=== PATIENT | female | born 1965 | race Caucasian/White ===

== ENCOUNTER → 2017-07-17 | Outpatient (CLI) | payer OTHER ==
--- NOTE | 2017-07-19 08:01 | MAMMOGRAPHY REPORT ---
BILATERAL DIGITAL SCREENING MAMMOGRAM TOMOSYNTHESIS WITH CAD: 07/17/2017 CLINICAL HISTORY: Routine screening. Patient has no complaints. TECHNIQUE: Breast tomosynthesis in addition to standard 2D mammography was performed. Current study was also evaluated with a Computer Aided Detection (CAD) system. COMPARISON: Comparison is made to exams dated: 08/18/2016 mammogram, 08/29/2015 mammogram, and 5 mammogram. BREAST COMPOSITION: There are scattered areas of fibroglandular density in both breasts. FINDINGS: There are stable benign intramammary lymph nodes in the right breast. No suspicious mass, architectural distortion or cluster of microcalcifications is seen. IMPRESSION: ACR BI-RADS CATEGORY 1: NEGATIVE There is no mammographic evidence of malignancy. A 1 year screening mammogram is recommended. The pa tient will receive written notification of the results. Approximately 10% of breast cancers are not detected with mammography. A negative mammographic report should not delay biopsy if a clinically suggestive mass is present. Joanie Martínez M.D. ay/:07/17/2017 16:30:24 Moisture Conditioner Operator: Norma BROWN(R)([place]), [facility] letter sent: Normal 1/2 BI-RADS Code: ACR BI-RADS Category 1: Negative
== END | disposition home or self-care (01) ==
LOC: C.MAMM 13:50
PROVIDERS: ATTEND Nurse Practitioner Family
DX: Z12.31 Encounter for screening mammogram for malignant neoplasm of breast (principal)

== ENCOUNTER 2022-04-30 23:07 | Observation (INO) ==
[2022-04-30] MEDS ORDERED: SODIUM CHLORIDE 0.9% 1000ML 500 ML IV ONE (23:32)
--- NOTE | 2022-04-30 23:36 | Emergency Department Note ---
Impression & Plan Failure to thrive, Constipation, Acute dehydration ED Provider Note Name: AILEEN CARTER Age: 56 Sex: F Arrives Via: Ambulance Informant: ED Provider: Chirs Harley MD Chief Complaint: Constipation Impression: As per impressions above Medical Decision Makin-year-old female with hemorrhagic stroke 2 months ago requiring craniotomy and has been in a rehab facility up until last few days. She is recently gotten home with her . Arrives for evaluation of congestion and being uncomfortable. notes she has not pooped in several days. She is significantly constipated. Her chest x-ray is unremarkable. After long discussion with it seems he is having a lot of trouble caring for her given she is essentially 100% max assist requirement. After extensive discussions plan will be to bring her in for management of failure to thrive and constipation get her rehydrated and determine whether nursing facility care will be needed. I do not feel she is septic at this time I think the tachycardia and elevated white count are likely secondary to dehydration. UA is not consistent with a significant infection. Chest x-ray does not show pneumonia. While she is significantly constipated on KUB I do not see any clear evidence of obstruction she does not have a paratonic abdomen. Prior Medical Record and Triage/Nursing Notes reviewed by Me Additional history obtained from chart and Differentials:Infection, dehydration, metabolic abnormality, hypo/hyperglycemia, electrolyte disturbance, anemia, hypoxia, cardiac sources, intracerebral event, toxicologic, neurologic, as well as other pathologies. Vital Signs: reviewed and remarkable for tacky Interventions: IV fluids Labs:Reviewed and remarkable for mildly elevated white blood cell count Imagin view chest x-ray no acute findings. KUB nonspecific bowel gas pattern with moderate constipation Consults:Dr Regulo MCGINNIS Hospitalist Plan: Disposition:Hospitalization. Condition: Good History of Present Illness:56-year-old female arrives for evaluation of difficulty breathing as well as constipation. Patient had a large hemorrhagic stroke back in February and has been in rehab following craniotomy since then. She was discharged from rehab 3 days ago. During her stay at rehab she did have COVID about a month ago. Today she has had increasing work of breathing and been more uncomfortable. notes that she has not a bowel movement other than small hard stool in the last few days. She seemed to be complaining of abdominal pain earlier as well. She was given some Moxi IR with improvement in the pain. No vomiting. No blue lips. On getting to the hospital her breathing seems to have improved. No falls, trauma, injury. Patient does not have any foul-smelling urine but has been increased urination the last few days. ROS: Patient is aphasic and unable to do review of systems Past Medical History:Intracranial hemorrhage hypertension Past Surgical History:Craniotomy Family History:Unable to obtain due to aphasia Social History:Currently cared for by her as patient is bedbound Home Medications:See Below Allergies:Penicillin, erythromycin Vitals:Blood Pressure: 115/69, Pulse 118, RR 19, T 37.3C, O2 94% on RA Physical Exam: GENERAL: Patient is chronically unwell appearing and in minimal distress. EYES: No scleral icterus, unremarkable pupils. ENT: Mucous membranes dry, no nasal congestion. NECK: No masses appreciated, nomeningismus, trachea is midline. RESPIRATORY: No dyspnea. Clear to auscultation and equal bilaterally. No wheeze, no rhonchi. CARDIOVASCULAR: Tachy.No murmurs, rubs, gallops appreciated. GASTROINTESTINAL: Abdomen soft, non-tender, no peritonitis.Bowel sounds positive.No masses appreciated. BACK: No midline tenderness, no CVA tenderness EXTREMITIES: Normal motion all extremities, no cyanosis, no edema. NEUROLOGIC: Looking around room, nodding to questions periodically, smiles periodically, flaccidity right arm/leg, moves left arm/leg SKIN: No rash, no jaundice, no diaphoresis. ED Course: Times/Reassessments: Patient's heart rate is slowly coming down. After discussi ons plan is to bring her in for further management and possibly placement depending on how things go. Chris Harley MD Past Med/Surg History Medical History (Updated 05/01/22 @ 07:04 by Chris Harley MD) Intraparenchymal hematoma of brain Surgical History (Updated 05/01/22 @ 02:18 by Adwoa Rajput DO) History of brain surgery Family History Other Migraine Social History Smoking Status: Never smoker Hx Alcohol Use: No Hx Substance Use: Yes Substance Use Type Other:: patient takes prescribed scheduled oxycodone Preferred Language: Bengali Communication Ability: Impaired Communication Ability Comment: patient can respond yes or no and answer appropriate at times Loose Hand Packer Required: No Beliefs That Will Affect Care: None Current Living Situation: Spouse Other Information That Helps Us Care for You: No Feels Safe at Home: Yes Safety Concerns: Feels Safe At This Time Assistive Devices: Wheelchair Assistive Devices Comment: helmet when OOB Allergies Allergies Allergy/AdvReac Type Severity Reaction Status Date / Time Penicillins Allergy Severe Hives Verified 02/21/22 19:23 erythromycin base AdvReac Severe Nausea Verified 02/21/22 19:23 Home Meds Home Medications Medication Instructions Recorded Confirmed acetaminophen 325 mg capsule 650 mg PO QID PRN Pain 02/21/22 05/01/22 (Tylenol) calcium citrate 315 mg-vitamin D3 1 tab PO DAILY 02/21/22 05/01/22 5 mcg (200 unit) tablet (Calcium Citrate + D) metoprolol tartrate 25 mg tablet 12.5 mg PO QPM 02/21/22 05/01/22 multivitamin 1 tab PO DAILY 02/21/22 05/01/22 naproxen sodium 220 mg capsule 220 mg PO Q8H PRN Pain 02/21/22 05/01/22 (Aleve) vitamin B complex 1 tab PO DAILY 02/21/22 05/01/22 albuterol sulfate 90 mcg/actuation 2 puff inhalation QID PRN 05/01/22 05/01/22 aerosol inhaler Shortness Of Breath Or Wheezing amitriptyline 50 mg tablet 50 mg PO DAILY 05/01/22 05/01/22 duloxetine 30 mg capsule,delayed 30 mg PO DAILY 05/01/22 05/01/22 release gabapentin 100 mg capsule 100 mg PO TID 05/01/22 05/01/22 magnesium 250 mg tablet 500 mg PO DAILY 05/01/22 05/01/22 ondansetron 4 mg disintegrating 4 mg PO UD PRN Nausea 05/01/22 05/01/22 tablet oxycodone 5 mg tablet 5 mg PO UD PRN Pain 05/01/22 05/01/22 pantoprazole 40 mg tablet,delayed 40 mg PO BID 05/01/22 05/01/22 release Results & Data (ED) Vital Signs Vital Signs - 24 hr 04/30/22 23:18 04/30/22 23:14 04/30/22 23:20 Temperature 37.3 C Temperature Source Oral Pulse Rate 118 H 117 H 111 H Pulse Rate from SpO2 Sensor 117 H 113 H Respiratory Rate 19 13 19 Blood Pressure 115/69 Blood Pressure Mean 84 Pulse Oximetry 94 94 94 Oxygen Delivery Method Room Air Sepsis Recent Fever Within 48 Hours No Sepsis New/Unexplained Change in Mental Status No Sepsis Action Taken by Nursing No Action Required 04/30/22 23:30 04/30/22 23:40 04/30/22 23:50 Temperature Temperature Source Pulse Rate 108 H 119 H 138 H Pulse Rate from SpO2 Sensor 108 H 119 H 130 H Respiratory Rate 11 L 16 16 Blood Pressure Blood Pressure Mean Pulse Oximetry 94 95 83 L Oxygen Delivery Method Sepsis Recent Fever Within 48 Hours Sepsis New/Unexplained Change in Mental Status Sepsis Action Taken by Nursing 05/01/22 00:00 05/01/22 00:10 05/01/22 00:20 Temperature Temperature Source Pulse Rate 105 H 120 H 106 H Pulse Rate from SpO2 Sensor 105 H 119 H 106 H Respiratory Rate 14 14 15 Blood Pressure Blood Pressure Mean Pulse Oximetry 93 95 93 Oxygen Delivery Method Sepsis Recent Fever Within 48 Hours Sepsis New/Unexplained Change in Mental Status Sepsis Action Taken by Nursing 05/01/22 00:30 05/01/22 00:40 05/01/22 01:00 Temperature Temperature Source Pulse Rate 104 H 111 H 114 H Pulse Rate from SpO2 Sensor 104 H 112 H 114 H Respiratory Rate 14 14 17 Blood Pressure 118/70 Blood Pressure Mean 86 Pulse Oximetry 93 93 94 Oxygen Delivery Method Room Air Sepsis Recent Fever Within 48 Hours Sepsis New/Unexplained Change in Mental Status Sepsis Action Taken by Nursing 05/01/22 01:30 05/01/22 01:33 05/01/22 02:00 Temperature Temperature Source Pulse Rate 102 H 101 H 101 H Pulse Rate from SpO2 Sensor 103 H Respiratory Rate 14 13 15 Blood Pressure 132/82 132/82 124/73 Blood Pressure Mean 98 98 90 Pulse Oximetry 96 96 94 Oxygen Delivery Method Room Air Room Air Room Air Sepsis Recent Fever Within 48 Hours Sepsis New/Unexplained Change in Mental Status Sepsis Action Taken by Nursing Laboratory Data Result diagrams: 04/30/22 23:40 05/01/22 01:03 Lab Results 04/30/22 04/30/22 04/30/22 Range/Units 23:40 23:40 23:40 WBC 13.42 H (4.8-10.8) K/ul RBC 4.33 (3.93-5.22) M/uL Hgb 12.8 (12.0-16.0) g/dl Hct 40.0 (34.1-44.9) % MCV 92.4 (80.0-100.0) fL MCH 29.6 (25.0-34.0) pg MCHC 32.0 (32.0-36.0) g/dL RDW Std Deviation 44.5 (36.4-46.3) fL RDW Coeff of Balaji 13.1 (11.5-14.5) % Plt Count 361 (130-400) K/uL MPV 9.4 (9.4-12.3) fL Immature Gran % (Auto) 0.4 % Neut % (Auto) 79.2 % Lymph % (Auto) 11.3 % Davis % (Auto) 6.2 % Eos % (Auto) 2.3 % Baso % (Auto) 0.6 % Neut # (Auto) 10.64 H (1.4-6.5) K/uL Lymph # (Auto) 1.51 (1.2-3.4) K/uL Davis # (Auto) 0.83 H (0.24-0.82) K/uL Eos # (Auto) 0.31 (0-0.50) K/uL Baso # (Auto) 0.08 (0-0.2) K/uL Immature Gran # (Auto) 0.05 H (0.00-0.02) K/uL Sodium 137 (136-145) mmol/L Potassium TNP Chloride 103 (98-107) mmol/L Carbon Dioxide 29 (21-32) mmol/L Anion Gap 5 (3-11) BUN 17 (6-23) mg/dl Creatinine 0.61 (0.6-1.2) mg/dl Est Cr Clr Drug Dosing Not Reportable Est GFR ( Amer) 118.3 ml/min Est GFR (Non-Af Amer) 102.1 ml/min BUN/Creatinine Ratio 27.9 H (10-20) Glucose 121 H (70-99(Fasting)) mg/dl Calcium 8.7 (8.5-10.1) mg/dl Magnesium 2.2 (1.7-2.4) mg/dl Total Bilirubin 0.3 (0.2-1.0) mg/dl AST TNP ALT 44 (7-52) U/L Alkaline Phosphatase 138 H (34-104) U/L Total Protein 6.8 (6.0-8.3) gm/dl Albumin 3.4 (3.4-5.0) gm/dl Globulin 3.4 (2.5-4.0) gm/dl Albumin/Globulin Ratio 1.0 (0.9-2) Procalcitonin 0.05 (0-0.5) ng/ml Urine Color Urine Appearance (Clear) Urine pH (4.5-7.5) Ur Specific [place] (1.000-1.030) Urine Protein (Negative) Urine Glucose (UA) (Negative) Urine Ketones (Negative) Urine Blood (Negative) Urine Nitrite (Negative) Urine Bilirubin (Negative) Urine Urobilinogen (Negative) Ur Leukocyte Esterase (Negative) Urine WBC (Auto) (0-5) /hpf Urine RBC (Auto) (0-4) /hpf U Hyaline Cast (Auto) (0-5) /lpf U Epithel Cells (Auto) (0-5) /lpf Urine Bacteria (Auto) (Negative) SARS-CoV-2 (PCR) (Negative) Influenza Type A (PCR) (Neg) Influenza Type B (PCR) (Neg) RSV (RT-PCR) (Neg) 04/30/22 05/01/22 05/01/22 Range/Units 23:42 00:50 01:03 WBC (4.8-10.8) K/ul RBC (3.93-5.22) M/uL Hgb (12.0-16.0) g/dl Hct (34.1-44.9) % MCV (80.0-100.0) fL MCH (25.0-34.0) pg MCHC (32.0-36.0) g/dL RDW Std Deviation (36.4-46.3) fL RDW Coeff of Balaji (11.5-14.5) % Plt Count (130-400) K/uL MPV (9.4-12.3) fL Immature Gran % (Auto) % Neut % (Auto) % Lymph % (Auto) % Davis % (Auto) % Eos % (Auto) % Baso % (Auto) % Neut # (Auto) (1.4-6.5) K/uL Lymph # (Auto) (1.2-3.4) K/uL Davis # (Auto) (0.24-0.82) K/uL Eos # (Auto) (0-0.50) K/uL Baso # (Auto) (0-0.2) K/uL Immature Gran # (Auto) (0.00-0.02) K/uL Sodium (136-145) mmol/L Potassium 4.3 Chloride (98-107) mmol/L Carbon Dioxide (21-32) mmol/L Anion Gap (3-11) BUN (6-23) mg/dl Creatinine (0.6-1.2) mg/dl Est Cr Clr Drug Dosing Est GFR ( Amer) ml/min Est GFR (Non-Af Amer) ml/min BUN/Creatinine Ratio (10-20) Glucose (70-99(Fasting)) mg/dl Calcium (8.5-10.1) mg/dl Magnesium (1.7-2.4) mg/dl Total Bilirubin (0.2-1.0) mg/dl AST 25 ALT (7-52) U/L Alkaline Phosphatase (34-104) U/L Total Protein (6.0-8.3) gm/dl Albumin (3.4-5.0) gm/dl Globulin (2.5-4.0) gm/dl Albumin/Globulin Ratio (0.9-2) Procalcitonin (0-0.5) ng/ml Urine Color Yellow Urine Appearance Clear (Clear) Urine pH 7.5 (4.5-7.5) Ur Specific [place] 1.011 (1.000-1.030) Urine Protein Negative (Negative) Urine Glucose (UA) Negative (Negative) Urine Ketones Negative (Negative) Urine Blood Negative (Negative) Urine Nitrite Negative (Negative) Urine Bilirubin Negative (Negative) Urine Urobilinogen Negative (Negative) Ur Leukocyte Esterase 1+ H (Negative) Urine WBC (Auto) 10-30 H (0-5) /hpf Urine RBC (Auto) 0-4 (0-4) /hpf U Hyaline Cast (Auto) 0 (0-5) /lpf U Epithel Cells (Auto) 5-10 H (0-5) /lpf Urine Bacteria (Auto) Negative (Negative) SARS-CoV-2 (PCR) NEGATIVE (Negative) Influenza Type A (PCR) Negative (Neg) Influenza Type B (PCR) Negative (Neg) RSV (RT-PCR) Negative (Neg) Administered Medications Lactated Ringer's (Lr) 1,000 mls @ 80 mls/hr IV .[id number] BRYCE Stop: 05/01/22 16:36 Last Admin: 05/01/22 05:50 Dose: 80 mls/hr Documented By: JONATHON Acetaminophen (Ofirmev) 1,000 mg in 100 mls @ 400 mls/hr IV Q8H PRN PRN Reason: pain Stop: 05/04/22 06:08 Last Admin: 05/01/22 06:32 Dose: 400 mls/hr Documented By: JONATHON Sterile Water (Tube Feeding Water Flush) 100 ml GT Q6H BRYCE Stop: 05/31/22 05:59 Last Admin: 05/01/22 05:50 Dose: 100 ml Documented By: JONATHON Discontinued Medications Sodium Chloride (Nss 1000ml) 500 mls @ 999 mls/hr IV .Q31M ONE Stop: 05/01/22 00:02 Last Infusion: 05/01/22 01:39 Dose: 0 mls/hr Documented By: Admin: 05/01/22 01:08 Dose: 999 mls/hr Documented By: SUZETTE Discharge Plan Visit Data Chief Complaint: Abdominal Pain Stated Complaint: Shortness of Breath, Constipation ED Provider: Chris Harley Discharge Problem: Failure to thrive, Constipation, Acute dehydration Patient Disposition: Admitted As Inpatient Discharge Instructions Interventions: ED Discharge Assessment Last Done: 05/01/22 03:30 : Failure to thrive Qualifiers: Failure to thrive age range: in adult Qualified Code(s): R62.7 - Adult failure to thrive Constipation Qualifiers: Constipation type: drug induced constipation Qualified Code(s): K59.03 - Drug induced constipation
[2022-04-30 23:53] LABS: Basophils # (auto) 0.08 K/uL (0-0.2); Basophils % (auto) 0.6 %; Eosinophils # (auto) 0.31 K/uL (0-0.50); Eosinophils % (auto) 2.3 %; Hemoglobin 12.8 g/dl (12.0-16.0); Immature Granulocytes # (auto) 0.05 K/uL (0.00-0.02); Immature Granulocytes % (auto) 0.4 %; Lymphocytes # (auto) 1.51 K/uL (1.2-3.4); Lymphocytes % (auto) 11.3 %; Mean Corpuscular Hemoglobin 29.6 pg (25.0-34.0); Mean Corpuscular Volume 92.4 fL (80.0-100.0); Mean Platelet Volume 9.4 fL (9.4-12.3); Monocytes # (auto) 0.83 K/uL (0.24-0.82); Monocytes % (auto) 6.2 %; Neutrophils # (auto) 10.64 K/uL (1.4-6.5); Neutrophils % (auto) 79.2 %; Platelet Count 361 K/uL (130-400); RDW Coefficient of Variation 13.1 % (11.5-14.5); RDW Standard Deviation 44.5 fL (36.4-46.3); Red Blood Count 4.33 M/uL (3.93-5.22); White Blood Count 13.42 K/ul (4.8-10.8)
[2022-05-01 00:24] LABS: Alanine Aminotransferase 44 U/L (7-52); Albumin Level 3.4 gm/dl (3.4-5.0); Alkaline Phosphatase 138 U/L (34-104); Anion Gap 5 (3-11); BUN Creatinine Ratio 27.9 (10-20); Bilirubin,Total 0.3 mg/dl (0.2-1.0); Blood Urea Nitrogen 17 mg/dl (6-23); Calcium 8.7 mg/dl (8.5-10.1); Carbon Dioxide 29 mmol/L (21-32); Chloride 103 mmol/L (98-107); Est GFR (African American) 118.3 ml/min; Est GFR (Non-African American) 102.1 ml/min; Globulin 3.4 gm/dl (2.5-4.0); Glucose 121 mg/dl (70-99(Fasting)); Magnesium 2.2 mg/dl (1.7-2.4); Sodium 137 mmol/L (136-145); Total Protein 6.8 gm/dl (6.0-8.3)
[2022-05-01 00:49] LABS: Influenza A virus by PCR Negative (Neg); Influenza B virus by PCR Negative (Neg); RSV by PCR Negative (Neg); SARS CoV2 RNA(COVID-19) Ceph NEGATIVE (Negative)
[2022-05-01 01:30] LABS: Appearance Urine Clear (Clear); Bacteria Urine Automated Negative (Negative); Bilirubin Urine Negative (Negative); Blood Urine Negative (Negative); Cast Urine Automated 0 /lpf (0-5); Color Urine Yellow; Glucose Urine UA Negative (Negative); Ketones Urine Negative (Negative); Leukocyte Esterase Urine 1+ (Negative); Nitrite Urine Negative (Negative); Protein Urine Negative (Negative); RBC Urine Automated 0-4 /hpf (0-4); Specific Gravity Urine 1.011 (1.000-1.030); Urobilinogen Urine Negative (Negative); pH Urine 7.5 (4.5-7.5)
[2022-05-01 01:38] LABS: Potassium 4.3 mmol/L (3.5-5.1)
--- NOTE | 2022-05-01 02:26 | History & Physical Report ---
Date of Service May 01, 2022 Assessment & Plan (1) Constipation: Plan: Patient with significant constipation -Miralax per PEG tube -Dulcolax CO -IVF - LR at 80mL/hr x 2L (2) Intraparenchymal hematoma of brain: Plan: Patient with left thalamic intraparenchymal hemorrhage on 04/06/22 s/p left decompressive hemicraniectomy and evacuation of hematoma. 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 -Turn and position q 2 hours -Monitor for skin breakdown -Aspiration precautions states that pathology report from her surgery revealed Glioblastoma as well. They are going to see Neuro-Oncology at [facility] and are opting to take a palliative course of action. -PT/OT evaluation re: possible fpc placement F/E/N - LR at 80mL/hr x 2L, electrolytes WNL, soft diet as tolerated with aspiration precautions Ppx - low risk for DVT Code - DNR/DNI Dispo - Admit to medical History of Present Illness Chief Complaint: constipation Primary Care Provider: Tejas Roman MD Netta Sibley is an unfortunate 56yo female with history of childhood ALL s/p chemotherapy and WBRT. She had a large left thalamic spontaneous intraparenchymal hematoma on 03/06/22 s/p left sided decompressive hemicraniectomy on 03/08/22, hematoma evacuation on 03/13/22. Patient had a tracheostomy and PEG tube placement. She was discharged to an LTAC on 03/22/22. Patient was then managed at [facility] and returned home 4 days ago. Her has been managing her care. They just started home health services today. notes severe constipation. Patient has only had 3 small BMs since returning home. Also some mention of upper airway noise, difficulty clearing secretions at times. No fever, chills, chest pain, cough or SOB. No nausea or vomiting. Patient with right sided flaccid paralysis and expressive aphasia. She is able to answer "yes" and "no" only at times. She is able to sit up in a wheelchair. She is able to feed herself a soft diet and also receives PEG tube feedings qHS (Jevity at 60mL/hr x 450mL nightly with free water flushes 100mL q 6 hours). She takes her medications with applesauce. She has a hospital bed and wheelchair at home. She wears a helmet when she is out of bed and a drop foot brace on her RLE. In the ER she is afebrile, HD stable, NAD. ER Course: NSS x 500mL Allergies Allergy/AdvReac Type Severity Reaction Status Date / Time Penicillins Allergy Severe Hives Verified 02/21/22 19:23 erythromycin base AdvReac Severe Nausea Verified 02/21/22 19:23 Home Medications Medication Instructions Recorded Confirmed Type acetaminophen 325 mg capsule 650 mg PO QID PRN Pain 02/21/22 03/07/22 History (Tylenol) calcium citrate 315 mg-vitamin D3 1 tab PO DAILY 02/21/22 03/07/22 History 5 mcg (200 unit) tablet (Calcium Citrate + D) magnesium 500 mg tablet 500 mg PO DAILY 02/21/22 03/07/22 History metoprolol tartrate 25 mg tablet 12.5 mg PO QPM 02/21/22 03/07/22 History multivitamin 1 tab PO DAILY 02/21/22 03/07/22 History naproxen sodium 220 mg capsule 220 mg PO Q8H PRN Pain 02/21/22 03/07/22 History (Aleve) vitamin B complex 1 tab PO DAILY 02/21/22 03/07/22 History Past Med/Surg History Medical History (Updated 05/01/22 @ 02:21 by Adwoa Rajput DO) Intraparenchymal hematoma of brain Surgical History (Updated 05/01/22 @ 02:18 by Adwoa Rajput DO) History of brain surgery Family History Other Migraine Social History Smoking Status: Unknown if ever smoked Preferred Language: Nigerien Feels Safe at Home: Yes Review of Systems Review of Systems: All systems reviewed & are unremarkable except as noted in HPI & below Physical Exam Physical Exam: General: right sided flaccid paralysis, expressive aphasia, s/p left sided hemicraniectomy Skin: warm, dry, intact, no rashes or lesions HEENT: NC/AT, PERRL, EOMI, anicteric sclera, conjunctiva without injection, external ear normal to inspection and nontender, nares patent, moist mucus membranes, dentition intact, no oropharyngeal lesions, neck supple, trachea midline, no LAD, no thyromegaly, no JVD Heart: +S1/S2, regular, no m/r/g Lungs: equal air entry bilaterally, no rales/rhonchi/wheezes Abd: +BS, soft, NT/ND, no masses/organomegaly/ascites, PEG tube in place Ext: warm, 2+ pulses in UE/LE bilaterally, no clubbing/cyanosis or edema Neuro: right sided paralysis, expressive aphasia Results & Data Results & Data ([facility]) Vital Signs (Past 12 Hours) Vital Signs Temp Pulse Resp BP Pulse Ox O2 Del Method 05/01/22 01:30 102 H 14 132/82 96 Room Air 05/01/22 01:00 114 H 17 118/70 94 Room Air 05/01/22 00:40 111 H 14 93 05/01/22 00:30 104 H 14 93 05/01/22 00:20 106 H 15 93 05/01/22 00:10 120 H 14 95 05/01/22 00:00 105 H 14 93 04/30/22 23:50 138 H 16 83 L 04/30/22 23:40 119 H 16 95 04/30/22 23:30 108 H 11 L 94 04/30/22 23:20 111 H 19 94 04/30/22 23:14 117 H 13 94 04/30/22 23:18 37.3 C 118 H 19 115/69 94 Room Air Laboratory Results Laboratory Results WBC 13.42 K/ul (4.8-10.8) H 04/30/22 23:40 RBC 4.33 M/uL (3.93-5.22) 04/30/22 23:40 Hgb 12.8 g/dl (12.0-16.0) 04/30/22 23:40 Hct 40.0 % (34.1-44.9) 04/30/22 23:40 MCV 92.4 fL (80.0-100.0) 04/30/22 23:40 MCH 29.6 pg (25.0-34.0) 04/30/22 23:40 MCHC 32.0 g/dL (32.0-36.0) 04/30/22 23:40 RDW Std Deviation 44.5 fL (36.4-46.3) 04/30/22 23:40 RDW Coeff of Balaji 13.1 % (11.5-14.5) 04/30/22 23:40 Plt Count 361 K/uL (130-400) 04/30/22 23:40 MPV 9.4 fL (9.4-12.3) 04/30/22 23:40 Immature Gran % (Auto) 0.4 % 04/30/22 23:40 Neut % (Auto) 79.2 % 04/30/22 23:40 Lymph % (Auto) 11.3 % 04/30/22 23:40 [place] % (Auto) 6.2 % 04/30/22 23:40 Eos % (Auto) 2.3 % 04/30/22 23:40 Baso % (Auto) 0.6 % 04/30/22 23:40 Neut # (Auto) 10.64 K/uL (1.4-6.5) H 04/30/22 23:40 Lymph # (Auto) 1.51 K/uL (1.2-3.4) 04/30/22 23:40 [place] # (Auto) 0.83 K/uL (0.24-0.82) H 04/30/22 23:40 Eos # (Auto) 0.31 K/uL (0-0.50) 04/30/22 23:40 Baso # (Auto) 0.08 K/uL (0-0.2) 04/30/22 23:40 Immature Gran # (Auto) 0.05 K/uL (0.00-0.02) H 04/30/22 23:40 Sodium 137 mmol/L (136-145) 04/30/22 23:40 Potassium 4.3 mmol/L (3.5-5.1) 05/01/22 01:03 Chloride 103 mmol/L (98-107) 04/30/22 23:40 Carbon Dioxide 29 mmol/L (21-32) 04/30/22 23:40 Anion Gap 5 (3-11) 04/30/22 23:40 BUN 17 mg/dl (6-23) 04/30/22 23:40 Creatinine 0.61 mg/dl (0.6-1.2) 04/30/22 23:40 Est Cr Clr Drug Dosing Not Reportable 04/30/22 23:40 Est GFR ( Amer) 118.3 ml/min 04/30/22 23:40 Est GFR (Non-Af Amer) 102.1 ml/min 04/30/22 23:40 BUN/Creatinine Ratio 27.9 (10-20) H 04/30/22 23:40 Glucose 121 mg/dl (70-99(Fasting)) H 04/30/22 23:40 Calcium 8.7 mg/dl (8.5-10.1) 04/30/22 23:40 Magnesium 2.2 mg/dl (1.7-2.4) 04/30/22 23:40 Total Bilirubin 0.3 mg/dl (0.2-1.0) 04/30/22 23:40 AST 25 U/L (13-39) 05/01/22 01:03 ALT 44 U/L (7-52) 04/30/22 23:40 Alkaline Phosphatase 138 U/L (34-104) H 04/30/22 23:40 Total Protein 6.8 gm/dl (6.0-8.3) 04/30/22 23:40 Albumin 3.4 gm/dl (3.4-5.0) 04/30/22 23:40 Globulin 3.4 gm/dl (2.5-4.0) 04/30/22 23:40 Albumin/Globulin Ratio 1.0 (0.9-2) 04/30/22 23:40 Procalcitonin 0.05 ng/ml (0-0.5) 04/30/22 23:40 Urine Color Yellow 05/01/22 00:50 Urine Appearance Clear (Clear) 05/01/22 00:50 Urine pH 7.5 (4.5-7.5) 05/01/22 00:50 Ur Specific [place] 1.011 (1.000-1.030) 05/01/22 00:50 Urine Protein Negative (Negative) 05/01/22 00:50 Urine Glucose (UA) Negative (Negative) 05/01/22 00:50 Urine Ketones Negative (Negative) 05/01/22 00:50 Urine Blood Negative (Negative) 05/01/22 00:50 Urine Nitrite Negative (Negative) 05/01/22 00:50 Urine Bilirubin Negative (Negative) 05/01/22 00:50 Urine Urobilinogen Negative (Negative) 05/01/22 00:50 Ur Leukocyte Esterase 1+ (Negative) H 05/01/22 00:50 Urine WBC (Auto) 10-30 /hpf (0-5) H 05/01/22 00:50 Urine RBC (Auto) 0-4 /hpf (0-4) 05/01/22 00:50 U Hyaline Cast (Auto) 0 /lpf (0-5) 05/01/22 00:50 U Epithel Cells (Auto) 5-10 /lpf (0-5) H 05/01/22 00:50 Urine Bacteria (Auto) Negative (Negative) 05/01/22 00:50 SARS-CoV-2 (PCR) NEGATIVE (Negative) 04/30/22 23:42 Influenza Type A (PCR) Negative (Neg) 04/30/22 23:42 Influenza Type B (PCR) Negative (Neg) 04/30/22 23:42 RSV (RT-PCR) Negative (Neg) 04/30/22 23:42 PG Care Time/CCT Total # of Minutes Spent Total Time Spent with Patient: Total time spent is greater than 50% in coordination of care (as documented) at patient's floor/unit and/or counseling patient: Coding Level of Care Code 72763 Initial Inpt Care Lvl 2 Diagnoses Constipation K59.00 Intraparenchymal hematoma of brain S06.33AA
[2022-05-01] MEDS ORDERED: bisacodyL 10 MG SUPP PR PRN (04:07)
[2022-05-01] MEDS ORDERED: LACTATED RINGER'S 1,000 ML IV SCH (04:07)
[2022-05-01] MEDS: TUBE FEEDING WATER FLUSH GT SCH ×4 (05:50→18:34)
[2022-05-01] MEDS: ACETAMINOPHEN 1,000 MG/100 ML VIAL IV PRN ×2 (06:32→16:12)
[2022-05-01] MEDS: POLYETHYLENE (MIRALAX) 17 GM PACK GT SCH (08:41)
--- NOTE | 2022-05-01 09:09 | XRay Report ---
KUB CLINICAL HISTORY: Constipation. FINDINGS: An AP supine abdominal radiograph is compared to study dated 10/06/2021. Cholecystectomy cli ps are seen in the right upper quadrant. A gastrostomy tube projects over the left upper quadrant. No bowel obstruction is seen. There is rectosigmoid fecal impaction noting moderate to severe constipat ion. No evidence of intraperitoneal free air is seen on this supine examination. There are no abnorma l abdominal calcifications. The bony structures appear intact. IMPRESSION: Rectosigmoid fecal impaction and moderate to severe constipation. Electronically signed by: Ezio Cantu M.D. 05/01/2022 9:07 AM
--- NOTE | 2022-05-01 09:10 | XRay Report ---
SINGLE VIEW CHEST CLINICAL HISTORY: Cough FINDINGS: An AP, portable, supine chest radiograph is compared to study dated 03/07/2022. The cardiom ediastinal silhouette is unremarkable. The lungs and pleural spaces are clear noting bibasilar atelec tasis. No pneumothorax is seen. The skeletal structures are osteopenic. The bony thorax is grossly in tact. Cholecystectomy clips are noted in the right upper quadrant. IMPRESSION: No active disease in the chest. ACT 112: Negative or not required by law. Electronically signed by: Ezio Cantu M.D. 05/01/2022 9:08 AM
--- NOTE | 2022-05-01 17:59 | History & Physical Bridge Note ---
Date of Service May 01, 2022 History & Physical Bridge Note I have examined the patient, reviewed the History & Physical and in the interval since the performance of the History & Physical : she ahs had 2-3 Bms. Denies any abd pain when I saw her around 5 pm. No n/v. Appetite good at home. Here ate 30%breakfast awake, interactive, looks well, Dry tongue Communication limited and assists in interpretation. I got history from - hemicraniectomy Feb for intraparenchymal cerebral h'age- since diagnosed as glioblastoma from path of excised tissue. Had a 6 weeks course of pigment weigher vent weaning in [place], then [facility]. Came home Apr. Came with c/c constipation. Less than optimum hand over Photo Rankrass to PATHSENSORS. 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 Still but have to ensure all good at home. Meds reviewed- will d/c Morel catheter. D/W RN .
[2022-05-01] MEDS: FIBERSOURCE HN 1.2 CAL 1000 ML BAG PO SCH (18:35)
[2022-05-02] MEDS: TUBE FEEDING WATER FLUSH GT SCH ×4 (00:40→17:44)
[2022-05-02] MEDS ORDERED: FIBERSOURCE~STOP ORDER SCH (02:30)
[2022-05-02 06:29] LABS: Hematocrit (blood only) 38.9 % (34.1-44.9); Hemoglobin 12.6 g/dl (12.0-16.0); Mean Corpuscular Hemoglobin 29.2 pg (25.0-34.0); Mean Corpuscular Hgb Conc 32.4 g/dL (32.0-36.0); Mean Corpuscular Volume 90.3 fL (80.0-100.0); Mean Platelet Volume 9.5 fL (9.4-12.3); Platelet Count 400 K/uL (130-400); RDW Coefficient of Variation 12.8 % (11.5-14.5); RDW Standard Deviation 42.5 fL (36.4-46.3); Red Blood Count 4.31 M/uL (3.93-5.22); White Blood Count 12.01 K/ul (4.8-10.8)
[2022-05-02 06:45] LABS: BUN Creatinine Ratio 20.8 (10-20); Calcium 8.7 mg/dl (8.5-10.1); Creatinine Clr Calc Pharmacy 114.4 ml/min; Est GFR (Non-African American) 110.4 ml/min; Potassium 3.8 mmol/L (3.5-5.1)
[2022-05-02] MEDS: POLYETHYLENE (MIRALAX) 17 GM PACK GT SCH (10:12)
[2022-05-02] MEDS ORDERED: ALBUTEROL HFA 8 GM INHALER INH PRN (14:46)
[2022-05-02] MEDS: oxyCODONE HCL IR 5 MG TAB (IMMEDIATE RELEASE) PO PRN (15:18)
[2022-05-02] MEDS: FIBERSOURCE HN 1.2 CAL 1000 ML BAG PO SCH (18:01)
[2022-05-02] MEDS: ACETAMINOPHEN 325 MG TAB PO PRN (18:06)
--- NOTE | 2022-05-02 20:59 | Hospitalist Progress Note ---
Date of Service May 02, 2022 Assessment & Plan (1) Constipation: Plan: Has resolved and is now ready for discharge -Miralax per PEG tube -Dulcolax AK Adequate p.o. intake (2) Intraparenchymal hematoma of brain: Plan: Patient with left thalamic intraparenchymal hemorrhage on 04/06/22 s/p left decompressive hemicraniectomy and evacuation of hematoma. 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 - states that pathology report from her surgery revealed Glioblastoma as well. They are going to see Neuro-Oncology at [facility] and are opting to take a palliative course of action. Will need SNF placement. Was home for 3 days starting 04/27 after discharge from [facility] ( first time home since 03/07 hemicraniectomy for in traparenchymal thalamic hemorrhage and hematoma)but does not have any help at home. Code - DNR/DNI Plan Ready for dischargeSNF referral sent Home med rec donefew held since patient has done well in the last 48 hours without them Did restart oxycodone as well as Tylenol as needed as right leg pain has been bothering her since yesterday. Getting IV Tylenol earlier per admission orders. Protonix changed from 40 twice daily to 40 daily Admission and Anticipated Discharge Date Admission Date: May 01, 2022 Subjective seen at 1300, no complaints except for right leg pain. Constipation is resolved several of her home medications have not been started including oxycodone, Tylenol and gabapentin. Home med rec was available and done this afternoon. Eating fairly well. Did not like the fish at lunch. 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 lower extremities, 5 out of 5 left upper and lower extremities Psych affect normal, appears to have sufficient insight and judgment Results & Data Results & Data ([facility]) Laboratory Results Abnormal lab results 05/02/22 05/02/22 Range/Units 05:50 05:50 WBC 12.01 H (4.8-10.8) K/ul Creatinine 0.48 L (0.6-1.2) mg/dl BUN/Creatinine Ratio 20.8 H (10-20) Glucose 103 H (70-99(Fasting)) mg/dl Medications Administered Home Medications Medication Instructions Recorded Confirmed Last Taken acetaminophen 325 mg capsule 650 mg PO QID PRN Pain 02/21/22 05/01/22 Unknown (Tylenol) calcium citrate 315 mg-vitamin D3 1 tab PO DAILY 02/21/22 05/01/22 Unknown 5 mcg (200 unit) tablet (Calcium Citrate + D) metoprolol tartrate 25 mg tablet 12.5 mg PO QPM 02/21/22 05/01/22 Unknown multivitamin 1 tab PO DAILY 02/21/22 05/01/22 Unknown naproxen sodium 220 mg capsule 220 mg PO Q8H PRN Pain 02/21/22 05/01/22 02/21/22 08:30 (Aleve) vitamin B complex 1 tab PO DAILY 02/21/22 05/01/22 Unknown albuterol sulfate 90 mcg/actuation 2 puff inhalation QID PRN 05/01/22 05/01/22 Unknown aerosol inhaler Shortness Of Breath Or Wheezing amitriptyline 50 mg tablet 50 mg PO DAILY 05/01/22 05/01/22 Unknown duloxetine 30 mg capsule,delayed 30 mg PO DAILY 05/01/22 05/01/22 Unknown release gabapentin 100 mg capsule 100 mg PO TID 05/01/22 05/01/22 Unknown magnesium 250 mg tablet 500 mg PO DAILY 05/01/22 05/01/22 Unknown ondansetron 4 mg disintegrating 4 mg PO UD PRN Nausea 05/01/22 05/01/22 Unknown tablet oxycodone 5 mg tablet 5 mg PO UD PRN Pain 05/01/22 05/01/22 Unknown pantoprazole 40 mg tablet,delayed 40 mg PO BID 05/01/22 05/01/22 Unknown release Active Medications Generic Name Dose Route Start Last Admin Trade Name Freq PRN Reason Stop Dose Admin Acetaminophen 650 mg 05/02/22 15:00 05/02/22 18:06 Acetaminophen 325 Mg Tab PO 06/01/22 14:59 650 mg Q6H PRN Administration Pain Enteral Nutritional Formula 1,000 ml 05/01/22:00 05/02/22 18:01 Fibersource Hn 1.2 Chava 1000 Ml Bag PO 05/31/22 18:59 1,000 ml DAILY@1900 BRYCE Administration Protocol Miscellaneous 1 each 05/02/22 05:00 05/02/22 05:10 Stop Order N/A 06/01/22 04:59 1 each DAILY@0500 BRYCE Administration Oxycodone HCl 5 mg 05/02/22 14:46 05/02/22 15:18 Oxycodone Hcl Ir 5 Mg Tab (Immediate Release) PO 05/16/22 14:45 5 mg UD PRN Administration Pain Polyethylene Glycol 17 gm 05/01/22 09:00 05/02/22 10:12 Polyethylene (Miralax) 17 Gm Pack GT 05/31/22 08:59 17 gm DAILY BRYCE Administration Sterile Water 200 ml 05/01/22 19:00 05/02/22 17:44 Tube Feeding Water Flush GT 05/31/22 18:59 200 ml Q6H BRYCE Administration PG Care Time/CCT Total # of Minutes Spent Total Time Spent with Patient: Total time spent is greater than 50% in coordination of care (as documented) at patient's floor/unit and/or counseling patient: Coding Level of Care Code 76557 Subseq Hosp Care Lvl 2 Diagnoses Constipation K59.00 Intraparenchymal hematoma of brain S06.33AA
[2022-05-03] MEDS: TUBE FEEDING WATER FLUSH GT SCH ×4 (00:44→18:20)
[2022-05-03] MEDS: MULTIVITAMIN TAB PO SCH (08:32)
[2022-05-03] MEDS: CALCIUM 600MG + VIT D 400 IU TAB PO SCH (08:32)
[2022-05-03] MEDS: PANTOprazole 40 MG TAB PO SCH (08:32)
[2022-05-03] MEDS: DULoxetine HCL 30 MG CAP PO SCH (08:33)
[2022-05-03] MEDS: VITAMIN B COMPLEX TAB PO SCH (08:33)
[2022-05-03] MEDS: POLYETHYLENE (MIRALAX) 17 GM PACK GT SCH (08:35)
[2022-05-03] MEDS ORDERED: NON-FORMULARY MEDICATION (Magnesium 250 mg Tablet) PO SCH (09:00)
[2022-05-03] MEDS: ACETAMINOPHEN 325 MG TAB PO PRN (11:08)
[2022-05-03] MEDS: oxyCODONE HCL IR 5 MG TAB (IMMEDIATE RELEASE) PO PRN (12:06)
--- NOTE | 2022-05-03 15:43 | Hospitalist Progress Note ---
Date of Service May 03, 2022 Assessment & Plan (1) Constipation: Plan: Has resolved. With MiraLAX. Colace twice daily added today, May 03. Dulcolax OR prn. (2) Intraparenchymal hematoma of brain: Plan: Patient with left thalamic intraparenchymal hemorrhage on 04/06/22, s/p left decompressive hemicraniectomy and evacuation of hematoma. 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 Due to underlying glioblastoma. They are going to see Neuro-Oncology at [facility] and are opting to take a palliative course of action. Will need SNF p lacement. Was home for 3 days starting 04/27 after discharge from [facility] ( first time home since 03/07 after hemicraniectomy for intraparenchymal thalamic hemorrhage and hematoma)but does not have any help at home. Plan CODE STATUS: DNR/DNI Disposition: Awaiting final arrangements for SNF placement Admission and Anticipated Discharge Date Admission Date: May 01, 2022 Subjective Alert. No acute distress. Colace added to MiraLAX daily. technology manager notes reviewed. Placement pending. is at the bedside Review of Systems Review of Systems: Constitutional-no fever or chills ENT-no blurred vision, no double vision, no epistaxis, no sore throat Respiratory-no cough, no wheezing, no shortness of breath Cardiac-no palpitations, no chest pain, no syncope GI-no nausea, vomiting, diarrhea, melena, hematochezia -no urinary retention, no urinary incontinence, no dysuria, no hematuria Musculoskeletal-large left-sided cranial defect from recent surgery Skin-no bruising, no rashes, no pruritus Neuro-right hemiparesis noted and aphasia Psych-no depression, no anxiety Physical Exam Physical Exam: General-alert. Aphasic. No apparent distress HEENT-large left cranial defect from recent surgery. Pupils equal and reactive to light, extraocular muscles intact Neck-no lymphadenopathy or thyromegaly, trachea midline Chest-clear to auscultation percussion. No rales wheezing or rhonchi Cardiac-regular rate and rhythm, normal S1 and S2 Abdomen-normal bowel sounds, nontender, no hepatosplenomegaly Extremities-no cyanosis, clubbing, or edema Neuro-aphasia and right hemiparesis from recent left cranial surgery Psych-cannot assess. Aphasic Results & Data Results & Data ([facility]) Vital Signs (Past 12 Hours) Vital Signs Temp Pulse Resp BP Pulse Ox O2 Del Method 05/03/22 15:34 36.7 C 106 H 16 115/79 96 Room Air 05/03/22 08:13 Room Air 05/03/22 07:24 36.9 C 102 H 16 114/76 98 Room Air Laboratory Results 05/02/22 05:50 05/02/22 05:50 PG Care Time/CCT Total # of Minutes Spent Total Time Spent with Patient: Total time spent is greater than 50% in coordination of care (as documented) at patient's floor/unit and/or counseling patient: Coding Level of Care Code 14809 Subseq Hosp Care Lvl 3 Diagnoses Constipation K59.00 Intraparenchymal hematoma of brain S06.33AA
[2022-05-03] MEDS: FIBERSOURCE HN 1.2 CAL 1000 ML BAG PO SCH (18:19)
[2022-05-03] MEDS: MELATONIN 3 MG TAB PO SCH (20:13)
[2022-05-03] MEDS: DOCUSATE SODIUM 100 MG CAP PO SCH (20:13)
[2022-05-04] MEDS: TUBE FEEDING WATER FLUSH GT SCH ×4 (01:05→18:31)
[2022-05-04] MEDS: ONDANSETRON 4 MG OD TAB PO PRN ×2 (02:16→08:36)
[2022-05-04] MEDS: ACETAMINOPHEN 325 MG TAB PO PRN (08:38)
[2022-05-04] MEDS: DULoxetine HCL 30 MG CAP PO SCH (08:40)
[2022-05-04] MEDS: PANTOprazole 40 MG TAB PO SCH (08:40)
[2022-05-04] MEDS: CALCIUM 600MG + VIT D 400 IU TAB PO SCH (08:40)
[2022-05-04] MEDS: VITAMIN B COMPLEX TAB PO SCH (08:40)
[2022-05-04] MEDS: MULTIVITAMIN TAB PO SCH (08:40)
[2022-05-04] MEDS: DOCUSATE SODIUM 100 MG CAP PO SCH ×2 (08:41→20:35)
[2022-05-04] MEDS: POLYETHYLENE (MIRALAX) 17 GM PACK GT SCH (08:42)
--- NOTE | 2022-05-04 14:19 | Hospitalist Progress Note ---
Date of Service May 04, 2022 Assessment & Plan (1) Constipation: Plan: Has resolved. Now on MiraLAX and Colace. Dulcolax [place] prn. (2) Intraparenchymal hematoma of brain: Plan: Patient with left thalamic intraparenchymal hemorrhage on 04/06/22, s/p left decompressive hemicraniectomy and evacuation of hematoma. 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 Due to underlying glioblastoma. They are going to see Neuro-Oncology at [facility] and are opting to take a palliative course of action. Will need SNF placement. Was home for 3 days starting 04/27 after discharge from [facility] ( first time home since 03/07 after hemicraniectomy for intraparenchymal thalamic hemorrhage and hematoma)but does not have any help at home. Plan CODE STATUS: DNR/DNI Disposition: Awaiting final arrangements for SNF placement Admission and Anticipated Discharge Date Admission Date: May 01, 2022 Subjective Alert. 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 Dense right hemiplegia. No new problems. Review of Systems Review of Systems: Constitutional-no fever or chills ENT-no blurred vision, no double vision, no epistaxis, no sore throat Respiratory-no cough, no wheezing, no shortness of breath Cardiac-no palpitations, no chest pain, no syncope GI-no nausea, vomiting, diarrhea, melena, hematochezia -no urinary retention, no urinary incontinence, no dysuria, no hematuria Musculoskeletal-large left-sided cranial defect from recent surgery Skin-no bruising, no rashes, no pruritus Neuro-right hemiparesis noted and aphasia Psych-no depression, no anxiety Physical Exam Physical Exam: General-alert. Aphasic. No apparent distress HEENT-large left cranial defect from recent surgery. Pupils equal and reactive to light, extraocular muscles intact Neck-no lymphadenopathy or thyromegaly, trachea midline Chest-clear to auscultation percussion. No rales wheezing or rhonchi Cardiac-regular rate and rhythm, normal S1 and S2 Abdomen-normal bowel sounds, nontender, no hepatosplenomegaly Extremities-no cyanosis, clubbing, or edema Neuro-aphasia and right hemiparesis from recent left cranial surgery Psych-cannot assess. Aphasic Results & Data Results & Data ([facility]) Vital Signs (Past 12 Hours) Vital Signs Temp Pulse Resp BP Pulse Ox O2 Del Method 05/04/22 06:15 36.8 C 97 H 16 113/77 95 Room Air Laboratory Results 05/02/22 05:50 05/02/22 05:50 PG Care Time/CCT Total # of Minutes Spent Total Time Spent with Patient: Total time spent is greater than 50% in coordination of care (as documented) at patient's floor/unit and/or counseling patient: Coding Level of Care Code 13726 Subseq Hosp Care Lvl 2 Diagnoses Constipation K59.00 Intraparenchymal hematoma of brain S06.33AA
[2022-05-04] MEDS: FIBERSOURCE HN 1.2 CAL 1000 ML BAG PO SCH (18:30)
[2022-05-04] MEDS: MELATONIN 3 MG TAB PO SCH (20:35)
[2022-05-05] MEDS: TUBE FEEDING WATER FLUSH GT SCH ×4 (00:26→18:49)
[2022-05-05] MEDS: ONDANSETRON 4 MG OD TAB PO PRN (02:21)
[2022-05-05] MEDS: ACETAMINOPHEN 325 MG TAB PO PRN ×2 (08:05→16:12)
[2022-05-05] MEDS: DULoxetine HCL 30 MG CAP PO SCH ×3 (08:06→12:42)
[2022-05-05] MEDS: VITAMIN B COMPLEX TAB PO SCH ×3 (08:06→12:42)
[2022-05-05] MEDS: CALCIUM 600MG + VIT D 400 IU TAB PO SCH ×3 (08:06→12:42)
[2022-05-05] MEDS: PANTOprazole 40 MG TAB PO SCH ×3 (08:06→12:42)
[2022-05-05] MEDS: POLYETHYLENE (MIRALAX) 17 GM PACK GT SCH (08:06)
[2022-05-05] MEDS: DOCUSATE SODIUM 100 MG CAP PO SCH ×3 (08:06→12:42)
[2022-05-05] MEDS: MULTIVITAMIN TAB PO SCH ×2 (08:06→12:42)
[2022-05-05] MEDS ORDERED: ONDANSETRON 4 MG OD TAB PO PRN (13:15)
--- NOTE | 2022-05-05 14:11 | Hospitalist Progress Note ---
Date of Service May 05, 2022 Assessment & Plan (1) Constipation: Plan: Has resolved. Now on MiraLAX and Colace. Dulcolax [place] prn. (2) Intraparenchymal hematoma of brain: Plan: Patient with left thalamic intraparenchymal hemorrhage on 04/06/22, s/p left decompressive hemicraniectomy and evacuation of hematoma. 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 Due to underlying glioblastoma. They are going to see Neuro-Oncology at [facility] and are opting to take a palliative course of action. Will need SNF placement. Was home for 3 days starting 04/27 after discharge from [facility] ( first time home since 03/07 after hemicraniectomy for intraparenchymal thalamic hemorrhage and hematoma)but does not have any help at home. Plan CODE STATUS: DNR/DNI Disposition: Awaiting final arrangements for SNF placement Admission and Anticipated Discharge Date Admission Date: May 01, 2022 Subjective No significant changes. The patient refused some of her oral medications this morning but her is now at the bedside and probably can talk her into taking those medications that cannot be crushed and put through the PEG tube. Otherwise no significant changes Review of Systems Review of Systems: Constitutional-no fever or chills ENT-no blurred vision, no double vision, no epistaxis, no sore throat Respiratory-no cough, no wheezing, no shortness of breath Cardiac-no palpitations, no chest pain, no syncope GI-no nausea, vomiting, diarrhea, melena, hematochezia -no urinary retention, no urinary incontinence, no dysuria, no hematuria Musculoskeletal-large left-sided cranial defect from recent surgery Skin-no bruising, no rashes, no pruritus Neuro-right hemiparesis noted and aphasia Psych-no depression, no anxiety Physical Exam Physical Exam: General-alert. Aphasic. No apparent distress HEENT-large left cranial defect from recent surgery. Pupils equal and reactive to light, extraocular muscles intact Neck-no lymphadenopathy or thyromegaly, trachea midline Chest-clear to auscultation percussion. No rales wheezing or rhonchi Cardiac-regular rate and rhythm, normal S1 and S2 Abdomen-normal bowel sounds, nontender, no hepatosplenomegaly Extremities-no cyanosis, clubbing, or edema Neuro-aphasia and right hemiparesis from recent left cranial surgery Psych-cannot assess. Aphasic Results & Data Results & Data ([facility]) Vital Signs (Past 12 Hours) Vital Signs Temp Pulse Resp BP Pulse Ox O2 Del Method 05/05/22 07:46 36.5 C 106 H 16 104/69 96 Room Air Laboratory Results 05/02/22 05:50 05/02/22 05:50 PG Care Time/CCT Total # of Minutes Spent Total Time Spent with Patient: Total time spent is greater than 50% in coordination of care (as documented) at patient's floor/unit and/or counseling patient: Coding Level of Care Code 79565 Subseq Hosp Care Lvl 2 Diagnoses Constipation K59.00 Intraparenchymal hematoma of brain S06.33AA
[2022-05-05] MEDS: FIBERSOURCE HN 1.2 CAL 1000 ML BAG PO SCH (18:50)
[2022-05-05] MEDS: DOCUSATE SODIUM SYRUP 100 MG/10 ML UDC PEG SCH (23:07)
[2022-05-05] MEDS: MELATONIN 3 MG TAB PO SCH (23:08)
[2022-05-06] MEDS: TUBE FEEDING WATER FLUSH GT SCH ×4 (01:02→18:42)
[2022-05-06] MEDS: DOCUSATE SODIUM SYRUP 100 MG/10 ML UDC PEG SCH (09:57)
[2022-05-06] MEDS: POLYETHYLENE (MIRALAX) 17 GM PACK GT SCH (09:57)
[2022-05-06] MEDS: PANTOprazole 40 MG TAB PO SCH (09:58)
[2022-05-06] MEDS: DULoxetine HCL 30 MG CAP PO SCH (09:58)
[2022-05-06] MEDS: CALCIUM 600MG + VIT D 400 IU TAB PO SCH (09:58)
[2022-05-06] MEDS: VITAMIN B COMPLEX TAB PO SCH (09:58)
[2022-05-06] MEDS: MULTIVITAMIN TAB PO SCH (09:59)
[2022-05-06] MEDS: ACETAMINOPHEN 325 MG TAB PO PRN ×2 (10:00→17:28)
--- NOTE | 2022-05-06 11:51 | Hospitalist Progress Note ---
Date of Service May 06, 2022 Assessment & Plan (1) Constipation: Plan: Has resolved. Now on polyethylene glycol and Colace-both stopped-excessive bowel movements this morning. Dulcolax [place] prn. (2) Intraparenchymal hematoma of brain: Plan: Patient with left thalamic intraparenchymal hemorrhage on 04/06/22, s/p left decompressive hemicraniectomy and evacuation of hematoma. 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 Due to underlying glioblastoma. They are going to see Neuro-Oncology at [facility] and are opting to take a palliative course of action. Will need SNF placement. Was home for 3 days starting 04/27 after discharge from [facility] ( first time home since 03/07 after hemicraniectomy for intraparenchymal thalamic hemorrhage and hematoma)but does not have any help at home. Pending SNF placement Plan BP soft and excessive bowel movementslaxatives stopped except as needed Check BMP in a.m. Otherwise stable for discharge when SNF bed available CODE STATUS: DNR/DNI Disposition: Awaiting final arrangements for SNF placement Admission and Anticipated Discharge Date Admission Date: May 01, 2022 Subjective At 1020, watching TV, well looking. RN reports several soft bowel movements today. Patient has expressive aphasia and is alone in the room. Nods head to pain(right arm pain chronic and be medicated per RN), patient noted to constipation as well-unreliable historian due to dysphagia. 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) Vital Signs (Past 12 Hours) Vital Signs Temp Pulse Pulse Resp BP Pulse Ox O2 Del Method 05/06/22 10:07 91 H 97 Room Air 05/06/22 07:30 36.8 C 95 H 18 93/55 L 95 Room Air Laboratory Results No lab Medications Administered Home Medications Medication Instructions Recorded Confirmed Last Taken acetaminophen 325 mg capsule 650 mg PO QID PRN Pain 02/21/22 05/01/22 Unknown (Tylenol) calcium citrate 315 mg-vitamin D3 1 tab PO DAILY 02/21/22 05/01/22 Unknown 5 mcg (200 unit) tablet (Calcium Citrate + D) metoprolol tartrate 25 mg tablet 12.5 mg PO QPM 02/21/22 05/01/22 Unknown multivitamin 1 tab PO DAILY 02/21/22 05/01/22 Unknown naproxen sodium 220 mg capsule 220 mg PO Q8H PRN Pain 02/21/22 05/01/22 02/21/22 08:30 (Aleve) vitamin B complex 1 tab PO DAILY 02/21/22 05/01/22 Unknown albuterol sulfate 90 mcg/actuation 2 puff inhalation QID PRN 05/01/22 05/01/22 Unknown aerosol inhaler Shortness Of Breath Or Wheezing amitriptyline 50 mg tablet 50 mg PO DAILY 05/01/22 05/01/22 Unknown duloxetine 30 mg capsule,delayed 30 mg PO DAILY 05/01/22 05/01/22 Unknown release gabapentin 100 mg capsule 100 mg PO TID 05/01/22 05/01/22 Unknown magnesium 250 mg tablet 500 mg PO DAILY 05/01/22 05/01/22 Unknown ondansetron 4 mg disintegrating 4 mg PO UD PRN Nausea 05/01/22 05/01/22 Unknown tablet oxycodone 5 mg tablet 5 mg PO UD PRN Pain 05/01/22 05/01/22 Unknown pantoprazole 40 mg tablet,delayed 40 mg PO BID 05/01/22 05/01/22 Unknown release Active Medications Generic Name Dose Route Start Last Admin Trade Name Freq PRN Reason Stop Dose Admin Acetaminophen 650 mg 05/02/22 15:00 05/06/22 10:00 Acetaminophen 325 Mg Tab PO 06/01/22 14:59 650 mg Q6H PRN Administration Pain Calcium/Vitamin D 1 tab 05/03/22 09:00 05/06/22 09:58 Calcium 600mg + Vit D 400 Iu Tab PO 06/02/22 08:59 1 tab DAILY BRYCE Administration Duloxetine HCl 30 mg 05/03/22 09:00 05/06/22 09:58 Duloxetine Hcl 30 Mg Cap PO 06/02/22 08:59 30 mg DAILY BRYCE Administration Enteral Nutritional Formula 1,000 ml 05/01/22 19:00 05/05/22 18:50 Fibersource Hn 1.2 Chava 1000 Ml Bag PO 05/31/22 18:59 1,000 ml DAILY@1900 BRYCE Administration Protocol Melatonin 6 mg 05/03/22 21:00 05/05/22 23:08 Melatonin 3 Mg Tab PO 06/02/22 20:59 Not Given HS BRYCE Miscellaneous 1 each 05/02/22 05:00 05/06/22 05:42 Stop Order N/A 06/01/22 04:59 1 each DAILY@0500 BRYCE Administration Multivitamins 1 tab 05/03/22 09:00 05/06/22 09:59 Multivitamin Tab PO 06/02/22 08:59 1 tab QAM BRYCE Administration Pantoprazole Sodium 40 mg 05/03/22 09:00 05/06/22 09:58 Pantoprazole 40 Mg Tab PO 06/02/22 08:59 40 mg QAM BRYCE Administration Sterile Water 200 ml 05/01/22 19:00 05/06/22 06:27 Tube Feeding Water Flush GT 05/31/22 18:59 200 ml Q6H BRYCE Administration Vitamin B Complex 1 tab 05/03/22 09:00 05/06/22 09:58 Vitamin B Complex Tab PO 06/02/22 08:59 1 tab DAILY BRYCE Administration PG Care Time/CCT Total # of Minutes Spent Total Time Spent with Patient: Total time spent is greater than 50% in coordination of care (as documented) at patient's floor/unit and/or counseling patient: Coding Level of Care Code 43390 Subseq Hosp Care Lvl 2 Diagnoses Constipation K59.00 Intraparenchymal hematoma of brain S06.33AA
[2022-05-06] MEDS: FIBERSOURCE HN 1.2 CAL 1000 ML BAG PO SCH (18:42)
[2022-05-06] MEDS: MELATONIN 3 MG TAB PO SCH (19:59)
[2022-05-07] MEDS: TUBE FEEDING WATER FLUSH GT SCH ×4 (00:32→18:41)
[2022-05-07] MEDS: ACETAMINOPHEN 325 MG TAB PO PRN ×2 (01:07→07:46)
[2022-05-07 06:36] LABS: BUN Creatinine Ratio 43.2 (10-20); Calcium 8.7 mg/dl (8.5-10.1); Creatinine Clr Calc Pharmacy 124.7 ml/min; Est GFR (African American) 131.7 ml/min; Est GFR (Non-African American) 113.6 ml/min; Magnesium 2.2 mg/dl (1.7-2.4); Potassium 4.2 mmol/L (3.5-5.1)
[2022-05-07] MEDS: VITAMIN B COMPLEX TAB PO SCH (07:46)
[2022-05-07] MEDS: MULTIVITAMIN TAB PO SCH (07:47)
[2022-05-07] MEDS: DULoxetine HCL 30 MG CAP PO SCH (07:47)
[2022-05-07] MEDS: CALCIUM 600MG + VIT D 400 IU TAB PO SCH (07:47)
[2022-05-07] MEDS: PANTOprazole 40 MG TAB PO SCH (07:47)
[2022-05-07] MEDS: oxyCODONE HCL IR 5 MG TAB (IMMEDIATE RELEASE) PO PRN ×2 (11:34→18:33)
--- NOTE | 2022-05-07 12:20 | Hospitalist Progress Note ---
Date of Service May 07, 2022 Assessment & Plan (1) Constipation: Plan: Has resolved. Just Dulcolax ID prn. 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 Due to underlying glioblastoma. They are going to see Neuro-Oncology at [facility] and are opting to take a palliative course of action. Will need SNF placement. Was home for 3 days starting 04/27 after discharge from [facility] rehab ( first time home since 03/07 after hemicraniectomy for intraparenchymal thalamic hemorrhage and hematoma)but does not have any help at home. Admitted here Apr No help for at home. Pending SNF placement Plan -stable for discharge when SNF bed available CODE STATUS: DNR/DNI Disposition: Awaiting final arrangements for SNF placement Admission and Anticipated Discharge Date Admission Date: May 01, 2022 Subjective at noon No complaints- wearing a hat , an Xmas gift from Had one BM today more formed- 3 or so yesterday Physical Exam Physical Exam: Pleasant and well looking, sitting up in bed,presents in the room , watching [employer] parade on TV Extremities MILD right ARM edema [employer]EC[employer]IVE 0 out of 5 right upper and lower extremities, 5 out of 5 left upper and lower extremities-non verbal Psych affect cheerful Results & Data Results & Data ([facility]) Vital Signs (Past 12 Hours) Vital Signs Temp Pulse Resp BP Pulse Ox O2 Del Method 05/07/22 07:35 Room Air 05/07/22 07:18 36.8 C 104 H 17 116/78 100 Room Air Laboratory Results Abnormal lab results 05/07/22 Range/Units 05:42 Creatinine 0.44 L (0.6-1.2) mg/dl BUN/Creatinine Ratio 43.2 H (10-20) Glucose 111 H (70-99(Fasting)) mg/dl Medications Administered Home Medications Medication Instructions Recorded Confirmed Last Taken acetaminophen 325 mg capsule 650 mg PO QID PRN Pain 02/21/22 05/01/22 Unknown (Tylenol) calcium citrate 315 mg-vitamin D3 1 tab PO DAILY 02/21/22 05/01/22 Unknown 5 mcg (200 unit) tablet (Calcium Citrate + D) metoprolol tartrate 25 mg tablet 12.5 mg PO QPM 02/21/22 05/01/22 Unknown multivitamin 1 tab PO DAILY 02/21/22 05/01/22 Unknown naproxen sodium 220 mg capsule 220 mg PO Q8H PRN Pain 02/21/22 05/01/22 02/21/22 08:30 (Aleve) vitamin B complex 1 tab PO DAILY 02/21/22 05/01/22 Unknown albuterol sulfate 90 mcg/actuation 2 puff inhalation QID PRN 05/01/22 05/01/22 Unknown aerosol inhaler Shortness Of Breath Or Wheezing amitriptyline 50 mg tablet 50 mg PO DAILY 05/01/22 05/01/22 Unknown duloxetine 30 mg capsule,delayed 30 mg PO DAILY 05/01/22 05/01/22 Unknown release gabapentin 100 mg capsule 100 mg PO TID 05/01/22 05/01/22 Unknown magnesium 250 mg tablet 500 mg PO DAILY 05/01/22 05/01/22 Unknown ondansetron 4 mg disintegrating 4 mg PO UD PRN Nausea 05/01/22 05/01/22 Unknown tablet oxycodone 5 mg tablet 5 mg PO UD PRN Pain 05/01/22 05/01/22 Unknown pantoprazole 40 mg tablet,delayed 40 mg PO BID 05/01/22 05/01/22 Unknown release Active Medications Generic Name Dose Route Start Last Admin Trade Name Freq PRN Reason Stop Dose Admin Acetaminophen 650 mg 05/02/22 15:00 05/07/22 07:46 Acetaminophen 325 Mg Tab PO 06/01/22 14:59 650 mg Q6H PRN Administration Pain Calcium/Vitamin D 1 tab 05/03/22 09:00 05/07/22 07:47 Calcium 600mg + Vit D 400 Iu Tab PO 06/02/22 08:59 1 tab DAILY BRYCE Administration Duloxetine HCl 30 mg 05/03/22 09:00 05/07/22 07:47 Duloxetine Hcl 30 Mg Cap PO 06/02/22 08:59 30 mg DAILY BRYCE Administration Enteral Nutritional Formula 1,000 ml 05/01/22 19:00 05/06/22 18:42 Fibersource Hn 1.2 Chava 1000 Ml Bag PO 05/31/22 18:59 1,000 ml DAILY@1900 BRYCE Administration Protocol Melatonin 6 mg 05/03/22 21:00 05/06/22 19:59 Melatonin 3 Mg Tab PO 06/02/22 20:59 6 mg HS BRYCE Administration Miscellaneous 1 each 05/02/22 05:00 05/07/22 05:11 Stop Order N/A 06/01/22 04:59 1 each DAILY@0500 BRYCE Administration Multivitamins 1 tab 05/03/22 09:00 05/07/22 07:47 Multivitamin Tab PO 06/02/22 08:59 1 tab QAM BRYCE Administration Oxycodone HCl 5 mg 05/05/22 13:00 05/07/22 11:34 Oxycodone Hcl Ir 5 Mg Tab (Immediate Release) PO 05/16/22 14:45 5 mg Q6H PRN Administration Pain Pantoprazole Sodium 40 mg 05/03/22 09:00 05/07/22 07:47 Pantoprazole 40 Mg Tab PO 06/02/22 08:59 40 mg QAM BRYCE Administration Sterile Water 200 ml 05/01/22 19:00 05/07/22 06:17 Tube Feeding Water Flush GT 05/31/22 18:59 200 ml Q6H BRYCE Administration Vitamin B Complex 1 tab 05/03/22 09:00 05/07/22 07:46 Vitamin B Complex Tab PO 06/02/22 08:59 1 tab DAILY BRYCE Administration PG Care Time/CCT Total # of Minutes Spent Total Time Spent with Patient: Total time spent is greater than 50% in coordination of care (as documented) at patient's floor/unit and/or counseling patient: Coding Level of Care Code 39470 Subseq Hosp Care Lvl 1 Diagnoses Constipation K59.00 Intraparenchymal hematoma of brain S06.33AA
[2022-05-07] MEDS: FIBERSOURCE HN 1.2 CAL 1000 ML BAG PO SCH (18:36)
[2022-05-07] MEDS: MELATONIN 3 MG TAB PO SCH (20:07)
[2022-05-08] MEDS: TUBE FEEDING WATER FLUSH GT SCH ×4 (01:50→18:44)
[2022-05-08] MEDS: oxyCODONE HCL IR 5 MG TAB (IMMEDIATE RELEASE) PO PRN ×3 (06:28→20:33)
[2022-05-08] MEDS: DULoxetine HCL 30 MG CAP PO SCH (08:14)
[2022-05-08] MEDS: CALCIUM 600MG + VIT D 400 IU TAB PO SCH (08:14)
[2022-05-08] MEDS: MULTIVITAMIN TAB PO SCH (08:14)
[2022-05-08] MEDS: VITAMIN B COMPLEX TAB PO SCH (08:14)
[2022-05-08] MEDS: PANTOprazole 40 MG TAB PO SCH (08:15)
[2022-05-08] MEDS ORDERED: POLYETHYLENE (MIRALAX) 17 GM PACK PO PRN (10:39)
[2022-05-08] MEDS: ACETAMINOPHEN 325 MG TAB PO PRN ×2 (11:07→17:20)
[2022-05-08] MEDS: FIBERSOURCE HN 1.2 CAL 1000 ML BAG PO SCH (18:44)
[2022-05-08] MEDS: MELATONIN 3 MG TAB PO SCH (20:33)
--- NOTE | 2022-05-08 20:42 | Hospitalist Progress Note ---
Date of Service May 08, 2022 Assessment & Plan (1) Constipation: Plan: Has resolved. Just Dulcolax [place] prn. Start MiraLAX every morning today. 2 days ago had 3-4 bowel movements and this was stopped (2) Intraparenchymal hematoma of brain: Plan: Patient with left thalamic intraparenchymal hemorrhage on 04/06/22, s/p left decompressive hemicraniectomy and evacuation of hematoma. 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 Due to underlying glioblastoma. They are going to see Neuro-Oncology at [facility] and are opting to take a palliative course of action. Will need SNF placement. Was home for 3 days starting 04/27 after discharge from [facility]hab ( first time home since 03/07 after hemicraniectomy for intraparenchymal thalamic hemorrhage and hematoma)but does not have any help at home. Admitted here Apr No help for at home. Pending SNF placement- says likely bed on the Plan -stable for discharge when SNF bed available CODE STATUS: DNR/DNI Disposition: Awaiting final arrangements for SNF placement Admission and Anticipated Discharge Date Admission Date: May 01, 2022 Subjective At 11 AM, no complaints. Communication limited. 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 of 5 right upper and lower extremities, 5 out of 5 left upper and lower extremities-non verbal Psych affect cheerful, limited communication Results & Data Results & Data ([facility]) Vital Signs (Past 12 Hours) Vital Signs Temp Pulse Resp BP Pulse Ox O2 Del Method 05/08/22 15:34 36.5 C 88 16 116/77 95 Room Air Laboratory Results No labs Medications Administered Reviewed PG Care Time/CCT Total # of Minutes Spent Total Time Spent with Patient: Total time spent is greater than 50% in coordination of care (as documented) at patient's floor/unit and/or counseling patient: Coding Level of Care Code 15817 Subseq Hosp Care Lvl 1 Diagnoses Constipation K59.00 Intraparenchymal hematoma of brain S06.33AA
[2022-05-09] MEDS: ACETAMINOPHEN 325 MG TAB PO PRN ×2 (01:52→17:25)
[2022-05-09] MEDS: TUBE FEEDING WATER FLUSH GT SCH ×4 (01:52→18:22)
[2022-05-09] MEDS: CALCIUM 600MG + VIT D 400 IU TAB PO SCH (07:51)
[2022-05-09] MEDS: VITAMIN B COMPLEX TAB PO SCH (07:51)
[2022-05-09] MEDS: PANTOprazole 40 MG TAB PO SCH ×2 (07:51→20:37)
[2022-05-09] MEDS: DULoxetine HCL 30 MG CAP PO SCH (07:52)
[2022-05-09] MEDS: MULTIVITAMIN TAB PO SCH (07:52)
[2022-05-09] MEDS: oxyCODONE HCL IR 5 MG TAB (IMMEDIATE RELEASE) PO PRN ×2 (11:32→18:24)
--- NOTE | 2022-05-09 16:33 | Hospitalist Progress Note ---
Date of Service May 09, 2022 Assessment & Plan (1) Constipation: Plan: Has resolved after Dulcolax and MiraLAX were given Likely secondary to opioid use Her OxyContin has been held since admission but she is taking as needed oxycodone Has had numerous bowel movements Now on MiraLAX daily as needed but restarting OxyContin so we will watch for further constipation (2) Intraparenchymal hematoma of brain: Plan: Patient with left thalamic intraparenchymal hemorrhage on 04/06/22, with 2 hemorrhagic strokes prior to that Now s/p left decompressive hemicraniectomy and evacuation of hematoma. 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 Due to underlying glioblastoma which was discovered incidentally on pathology after surgery Has been seen by Neuro-Oncology at [facility] and are opting to take a palliative course of action without any further procedures. Will need SNF placement. Was home for 3 days starting 04/27 after discharge from [facility] ( first time home since 03/07 after hemicraniectomy for intraparenchymal thalamic hemorrhage and hematoma)but does not have any help at home. Admitted here 19 Dec No help for at home. Needs continued PT/OT as often as possible while in the hospital until goes to rehab Continue tube feeds via PEG tube (3) Chronic pain: Plan: Chronic pain and right side from neuropathic pain, also with chronic headache status post hemicraniectomy Restart home OxyContin which was left of home med rec on admission-start back at 10 Mg p.o. twice daily Continue oxycodone as needed Restart home gabapentin 200 Mg p.o. 3 times daily which was also not on home medication reconciliation on admission Restart home amitriptyline 50 Mg p.o. at bedtime which was also left of the home medication reconciliation list Continue home duloxetine 30 mg daily (4) Status post insertion of percutaneous endoscopic gastrostomy (PEG) tube: Plan: Continue tube feeds and sterile free water flushes (5) Glioblastoma multiforme: Plan: As above, incidentally found on pathology after brain surgery No further treatment desired (6) Asymptomatic bacteriuria: Plan: Urine culture with Enterococcus, but urinalysis was contaminated with epithelial cells Now with Morel catheter in place for protection of skin breakdown Plan Patient on metoprolol for unclear reason at this time-perhaps for hypertension? Will follow PT/OT-Will replace orders and patient needs PT daily if possible CODE STATUS: DNR/DNI Disposition: Awaiting final arrangements for SNF placement on Admission and Anticipated Discharge Date Admission Date: May 01, 2022 Subjective voiced multiple concerns at bedside today: patient has not received any PT since 05/01, no OT since 05/04-we reviewed the notes together; she has not been receiving her previous pain med regmen to include Elavil, gabapentin, and Oxycontin-we carefully went through the entire home med reconciliation and made all appropriate changes and then ordered the medications for here. Pt typically has c/o headache pain and pain in RUE and RLE. RN reported skin reddened and wet from incontinence to urine-Morel placed for now. She is moving her bowels regularly Review of Systems Review of Systems: Other (difficult due to aphasia) Physical Exam Constitutional: WD/WN, vitals as above Eyes: + anicteric sclerae ENMT: Left-sided hemicraniectomy present Neck: trachea midline, no thyromegaly + abnormal visual inspection (tracheotomy scar healed) Respiratory: normal respiratory effort, lungs clear to auscultation Cardiovascular: RRR, no murmur, no edema Chest (Breasts): Chest: normal inspection of chest Gastrointestinal (Abdomen): normal bowel sounds, soft, nontender, no hepatosplenomegaly Inspection/Auscultation: + abdomen abnormal to inspection (PEG tube in place) Musculoskeletal: Extremities: no cyanosis and no clubbing Skin: no rashes, warm and dry Neurologic: + focal motor deficit (right hemiparesis) and awake Motor/Sensory: no tremor Psychiatric: Orientation: alert, oriented to person and cooperative Genitourinary: Morel in place draining clear yellow urine Lymphatic: no lymphedema Results & Data Results & Data ([facility]) Vital Signs (Past 12 Hours) Vital Signs Temp Pulse Resp BP Pulse Ox O2 Del Method 05/09/22 15:23 36.6 C 89 16 113/75 96 Room Air 05/09/22 08:00 Room Air 05/09/22 07:23 36.9 C 83 16 108/72 97 Room Air PG Care Time/CCT Total # of Minutes Spent Total Time Spent with Patient: Total time spent is greater than 50% in coordination of care (as documented) at patient's floor/unit and/or counseling patient: Coding Level of Care Code 45549 Subseq Hosp Care Lvl 2 Diagnoses Constipation K59.00 Intraparenchymal hematoma of brain S06.33AA Chronic pain G89.29 Status post insertion of percutaneous endoscopic gastrostomy (PEG) tube Z93.1 Glioblastoma multiforme C71.9 Asymptomatic bacteriuria R82.71
[2022-05-09] MEDS: FIBERSOURCE HN 1.2 CAL 1000 ML BAG PO SCH (18:22)
[2022-05-09] MEDS: AMITRIPTYLINE HCL 50 MG TAB PO SCH (20:36)
[2022-05-09] MEDS: GABAPENTIN 100 MG CAP PO SCH (20:36)
[2022-05-09] MEDS: MELATONIN 3 MG TAB PO SCH (20:37)
[2022-05-09] MEDS: oxyCODONE HCL 10 MG TABCR (OxyCONTIN) PO SCH (20:39)
[2022-05-10] MEDS: TUBE FEEDING WATER FLUSH GT SCH ×4 (00:55→18:43)
[2022-05-10] MEDS: VITAMIN B COMPLEX TAB PO SCH (07:57)
[2022-05-10] MEDS: MULTIVITAMIN TAB PO SCH (07:57)
[2022-05-10] MEDS: METOPROLOL TARTRATE 25 MG TAB PO SCH (07:57)
[2022-05-10] MEDS: DULoxetine HCL 30 MG CAP PO SCH (07:57)
[2022-05-10] MEDS: CALCIUM 600MG + VIT D 400 IU TAB PO SCH (07:57)
[2022-05-10] MEDS: PANTOprazole 40 MG TAB PO SCH ×3 (07:57→21:51)
[2022-05-10] MEDS: GABAPENTIN 100 MG CAP PO SCH ×3 (07:58→21:50)
[2022-05-10] MEDS: oxyCODONE HCL 10 MG TABCR (OxyCONTIN) PO SCH ×2 (08:03→21:51)
[2022-05-10 10:52] LABS: Basophils # (auto) 0.06 K/uL (0-0.2); Basophils % (auto) 0.5 %; Eosinophils # (auto) 0.23 K/uL (0-0.50); Hematocrit (blood only) 41.9 % (34.1-44.9); Hemoglobin 13.6 g/dl (12.0-16.0); Immature Granulocytes # (auto) 0.04 K/uL (0.00-0.02); Immature Granulocytes % (auto) 0.3 %; Lymphocytes # (auto) 1.83 K/uL (1.2-3.4); Lymphocytes % (auto) 15.6 %; Mean Corpuscular Hgb Conc 32.5 g/dL (32.0-36.0); Mean Corpuscular Volume 89.3 fL (80.0-100.0); Mean Platelet Volume 9.5 fL (9.4-12.3); Monocytes # (auto) 0.83 K/uL (0.24-0.82); Monocytes % (auto) 7.1 %; Neutrophils # (auto) 8.77 K/uL (1.4-6.5); Neutrophils % (auto) 74.5 %; Platelet Count 375 K/uL (130-400); RDW Standard Deviation 42.6 fL (36.4-46.3); Red Blood Count 4.69 M/uL (3.93-5.22); White Blood Count 11.76 K/ul (4.8-10.8)
[2022-05-10 11:21] LABS: Albumin Globulin Ratio 1.1 (0.9-2); Albumin Level 3.6 gm/dl (3.4-5.0); Bilirubin,Total 0.3 mg/dl (0.2-1.0); Calcium 9.2 mg/dl (8.5-10.1); Creatinine Clr Calc Pharmacy 109.8 ml/min; Est GFR (African American) 126.3 ml/min; Globulin 3.2 gm/dl (2.5-4.0); Magnesium 2.2 mg/dl (1.7-2.4); Phosphorus 3.1 mg/dl (2.5-4.9); Potassium 4.4 mmol/L (3.5-5.1); Total Protein 6.8 gm/dl (6.0-8.3)
--- NOTE | 2022-05-10 14:34 | Hospitalist Progress Note ---
Date of Service May 10, 2022 Assessment & Plan (1) Constipation: Plan: Has resolved after Dulcolax and MiraLAX were given Likely secondary to opioid use Her OxyContin was held but is now restarted, continues also on as needed oxycodone IR Has had numerous bowel movements Now on MiraLAX daily as needed but restarting OxyContin so we will watch for further constipation -add on docusate bid (2) Intraparenchymal hematoma of brain: Plan: Patient with left thalamic intraparenchymal hemorrhage on 04/06/22, with 2 hemorrhagic strokes prior to that Now s/p left decompressive hemicraniectomy and evacuation of hematoma. 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 Due to underlying glioblastoma which was discovered incidentally on pathology after surgery Has been seen by Neuro-Oncology at [facility] and are opting to take a palliative course of action without any further procedures. Will need SNF placement. Was home for 3 days starting 04/27 after discharge from [facility] ( first time home since 03/07 after hemicraniectomy for intraparenchymal thalamic hemorrhage and hematoma)but does not have any help at home. Admitted here 19 Dec No help for at home. Needs continued PT/OT as often as possible while in the hospital until goes to rehab Continue supplemental tube feeds via PEG tube at night but eats by mouth during the day (3) Chronic pain: Plan: Chronic pain and right side from neuropathic pain, also with chronic headache status post hemicraniectomy Restarted home OxyContin which was left of home med rec on admission-started back at 10 Mg p.o. twice daily Continue oxycodone as needed Restarted home gabapentin 200 Mg p.o. 3 times daily which was also not on home medication reconciliation on admission Restarted home amitriptyline 50 Mg p.o. at bedtime which was also left of the home medication reconciliation list Continue home duloxetine 30 mg daily Having ongoing RUE pain today-give oxycodone now (4) Status post insertion of percutaneous endoscopic gastrostomy (PEG) tube: Plan: Continue tube feeds and sterile free water flushes (5) Glioblastoma multiforme: Plan: As above, incidentally found on pathology after brain surgery No further treatment desired (6) Asymptomatic bacteriuria: Plan: Urine culture with Enterococcus, but urinalysis was contaminated with epithelial cells Now with Morel catheter in place for protection of skin breakdown (7) HTN (hypertension), benign: Plan: continue metoprolol low dose tartrate 1.25mg only once daily Plan PT/OT-continue with PT/OT daily if possible CODE STATUS: DNR/DNI Disposition: Awaiting insurance auth for SNF placement on Admission and Anticipated Discharge Date Admission Date: May 01, 2022 Subjective Worked with PT today but could not even sit unassisted on side of bed. This is a decline/change from previous. reports she seems to be having a lot of pain currently in the right arm. She is eating by mouth and gets supplemental feeds through tube at nighttime. Review of Systems Review of Systems: Unobtainable due to cognitive status Physical Exam Constitutional: WD/WN, vitals as above Eyes: + anicteric sclerae Neck: trachea midline, no thyromegaly + abnormal visual inspection (tracheotomy scar healed) Respiratory: normal respiratory effort, lungs clear to auscultation Cardiovascular: RRR, no murmur, no edema Chest (Breasts): Chest: normal inspection of chest Gastrointestinal (Abdomen): normal bowel sounds, soft, nontender, no hepatosplenomegaly Inspection/Auscultation: + abdomen abnormal to inspection (PEG tube in place) Musculoskeletal: Extremities: no cyanosis and no clubbing Skin: no rashes, warm and dry Neurologic: + focal motor deficit (right hemiparesis) and awake Motor/Sensory: no tremor Psychiatric: Orientation: alert, oriented to person and cooperative Lymphatic: no lymphedema Results & Data Results & Data ([facility]) Vital Signs (Past 12 Hours) Vital Signs Temp Pulse Resp BP Pulse Ox O2 Del Method 05/10/22 08:00 Room Air 05/10/22 07:03 37 C 93 H 16 110/71 98 Room Air Laboratory Results 05/10/22 05/10/22 Range/Units 10:34 10:34 WBC 11.76 H (4.8-10.8) K/ul RBC 4.69 (3.93-5.22) M/uL Hgb 13.6 (12.0-16.0) g/dl Hct 41.9 (34.1-44.9) % MCV 89.3 (80.0-100.0) fL MCH 29.0 (25.0-34.0) pg MCHC 32.5 (32.0-36.0) g/dL RDW Std Deviation 42.6 (36.4-46.3) fL RDW Coeff of Balaji 13.0 (11.5-14.5) % Plt Count 375 (130-400) K/uL MPV 9.5 (9.4-12.3) fL Immature Gran % (Auto) 0.3 % Neut % (Auto) 74.5 % Lymph % (Auto) 15.6 % [place] % (Auto) 7.1 % Eos % (Auto) 2.0 % Baso % (Auto) 0.5 % Neut # (Auto) 8.77 H (1.4-6.5) K/uL Lymph # (Auto) 1.83 (1.2-3.4) K/uL [place] # (Auto) 0.83 H (0.24-0.82) K/uL Eos # (Auto) 0.23 (0-0.50) K/uL Baso # (Auto) 0.06 (0-0.2) K/uL Immature Gran # (Auto) 0.04 H (0.00-0.02) K/uL Sodium 138 (136-145) mmol/L Potassium 4.4 (3.5-5.1) mmol/L Chloride 104 (98-107) mmol/L Carbon Dioxide 30 (21-32) mmol/L Anion Gap 4 (3-11) BUN 21 (6-23) mg/dl Creatinine 0.50 L (0.6-1.2) mg/dl Est Cr Clr Drug Dosing 109.8 ml/min Est GFR ( Amer) 126.3 ml/min Est GFR (Non-Af Amer) 109.0 ml/min BUN/Creatinine Ratio 42.0 H (10-20) Glucose 106 H (70-99(Fasting)) mg/dl Calcium 9.2 (8.5-10.1) mg/dl Phosphorus 3.1 (2.5-4.9) mg/dl Magnesium 2.2 (1.7-2.4) mg/dl Total Bilirubin 0.3 (0.2-1.0) mg/dl AST 13 (13-39) U/L ALT 21 (7-52) U/L Alkaline Phosphatase 131 H (34-104) U/L Total Protein 6.8 (6.0-8.3) gm/dl Albumin 3.6 (3.4-5.0) gm/dl Globulin 3.2 (2.5-4.0) gm/dl Albumin/Globulin Ratio 1.1 (0.9-2) PG Care Time/CCT Total # of Minutes Spent Total Time Spent with Patient: Total time spent is greater than 50% in coordination of care (as documented) at patient's floor/unit and/or counseling patient: Coding Level of Care Code 50157 Subseq Hosp Care Lvl 2 Diagnoses Constipation K59.00 Intraparenchymal hematoma of brain S06.33AA Chronic pain G89.29 Status post insertion of percutaneous endoscopic gastrostomy (PEG) tube Z93.1 Glioblastoma multiforme C71.9 Asymptomatic bacteriuria R82.71 HTN (hypertension), benign I10
[2022-05-10] MEDS: oxyCODONE HCL IR 5 MG TAB (IMMEDIATE RELEASE) PO PRN (15:20)
[2022-05-10] MEDS: FIBERSOURCE HN 1.2 CAL 1000 ML BAG PO SCH (18:42)
[2022-05-10] MEDS: DOCUSATE SODIUM 100 MG CAP PO SCH (21:49)
[2022-05-10] MEDS: AMITRIPTYLINE HCL 50 MG TAB PO SCH (21:50)
[2022-05-10] MEDS: MELATONIN 3 MG TAB PO SCH (21:51)
[2022-05-11] MEDS: TUBE FEEDING WATER FLUSH GT SCH ×3 (01:00→13:41)
[2022-05-11] MEDS: DULoxetine HCL 30 MG CAP PO SCH (08:17)
[2022-05-11] MEDS: PANTOprazole 40 MG TAB PO SCH ×2 (08:18→08:19)
[2022-05-11] MEDS: CALCIUM 600MG + VIT D 400 IU TAB PO SCH (08:18)
[2022-05-11] MEDS: MULTIVITAMIN TAB PO SCH (08:18)
[2022-05-11] MEDS: METOPROLOL TARTRATE 25 MG TAB PO SCH (08:18)
[2022-05-11] MEDS: GABAPENTIN 100 MG CAP PO SCH ×2 (08:18→14:46)
[2022-05-11] MEDS: DOCUSATE SODIUM 100 MG CAP PO SCH (08:18)
[2022-05-11] MEDS: VITAMIN B COMPLEX TAB PO SCH (08:19)
[2022-05-11] MEDS: oxyCODONE HCL 10 MG TABCR (OxyCONTIN) PO SCH (08:21)
--- NOTE | 2022-05-11 16:31 | Discharge Summary ---
Date of Service May 11, 2022 Admission HPI Per Admitting Provider Netta Sibley is an unfortunate 56yo female with history of childhood ALL s/p chemotherapy and WBRT. She had a large left thalamic spontaneous intraparenchymal hematoma on 03/06/22 s/p left sided decompressive he micraniectomy on 03/08/22, hematoma evacuation on 03/13/22. Patient had a tracheostomy and PEG tube placement. She was discharged to an LTAC on 03/22/22. Patient was then managed at [facility] and returned home 4 days ago. Her has been managing her care. They just started home health services today. notes severe constipation. Patient has only had 3 small BMs since returning home. Also some mention of upper airway noise, difficulty clearing secretions at times. No fever, chills, chest pain, cough or SOB. No nausea or vomiting. Patient with right sided flaccid paralysis and expressive aphasia. She is able to answer "yes" and "no" only at times. She is able to sit up in a wheelchair. She is able to feed herself a soft diet and also receives PEG tube feedings qHS (Jevity at 60mL/hr x 450mL nightly with free water flushes 100mL q 6 hours). She takes her medications with applesauce. She has a hospital bed and wheelchair at home. She wears a helmet when she is out of bed and a drop foot brace on her RLE. In the ER she is afebrile, HD stable, NAD. ER Course: NSS x 500mL Principal Diagnosis Constipation Discharge Exam Constitutional WD/WN, vitals as above Eyes + anicteric sclerae Neck trachea midline, no thyromegaly + abnormal visual inspection (tracheotomy scar healed) Respiratory normal respiratory effort, lungs clear to auscultation Cardiovascular RRR, no murmur, no edema Chest (Breasts) Chest: normal inspection of chest Gastrointestinal (Abdomen) normal bowel sounds, soft, nontender, no hepatosplenomegaly Inspection/Auscultation: + abdomen abnormal to inspection (PEG tube in place) Musculoskeletal Extremities: no cyanosis and no clubbing Skin no rashes, warm and dry Neurologic + focal motor deficit (right hemiparesis) and awake Motor/Sensory: no tremor Psychiatric Orientation: alert, oriented to person and cooperative Lymphatic no lymphedema Discharge Data Allergies Allergy/AdvReac Type Severity Reaction Status Date / Time Penicillins Allergy Severe Hives Verified 02/21/22 19:23 erythromycin base AdvReac Severe Nausea Verified 02/21/22 19:23 green pepper AdvReac Verified 05/01/22 12:07 pepper (genus Capsicum) AdvReac Verified 05/01/22 12:07 Consultations 05/01/22 01:36 ED Decision to Admit Stat Hospital Course (1) Constipation: Has resolved after Dulcolax and MiraLAX were given Likely secondary to opioid use Her OxyContin was held but is now restarted, continues also on as needed oxycodone IR Has had numerous bowel movements Now on MiraLAX daily as needed but restarting OxyContin so we will watch for further constipation -added on docusate bid (2) Intraparenchymal hematoma of brain: Patient with left thalamic intraparenchymal hemorrhage on 04/06/22, with 2 hemorrhagic strokes prior to that Now s/p left decompressive hemicraniectomy and evacuation of hematoma. 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 Due to underlying glioblastoma which was discovered incidentally on pathology after surgery Has been seen by Neuro-Oncology at [facility] and are opting to take a palliative course of action without any further procedures. Will need SNF placement. Was home for 3 days starting 04/27 after discharge from [facility] ( first time home since 03/07 after hemicraniectomy for intraparenchymal thalamic hemorrhage and hematoma)but does not have any help at home. Admitted here 19 Dec No help for at home. Needs continued PT/OT Continue supplemental tube feeds via PEG tube at night but eats by mouth during the day (3) Chronic pain: Chronic pain and right side from neuropathic pain, also with chronic headache status post hemicraniectomy Restarted home OxyContin which was left of home med rec on admission-started back at 10 Mg p.o. twice daily Continue oxycodone as needed Restarted home gabapentin 200 Mg p.o. 3 times daily which was also not on home medication reconciliation on admission Restarted home amitriptyline 50 Mg p.o. at bedtime which was also left of the home medication reconciliation list Continue home duloxetine 30 mg daily pain better controlled now that she is back on her gabapentin and Oxycontin (4) Status post insertion of percutaneous endoscopic gastrostomy (PEG) tube: Continue tube feeds and sterile free water flushes (5) Glioblastoma multiforme: As above, incidentally found on pathology after brain surgery No further treatment desired (6) Asymptomatic bacteriuria: Urine culture with Enterococcus, but urinalysis was contaminated with epithelial cells no treatment needed or given (7) HTN (hypertension), benign: continue metoprolol low dose tartrate 12.5mg only once daily Plan CODE STATUS: DNR/DNI Disposition: dc to SNF today Total Time Total Time Spent Total Time Spent (In Minutes): 35 min Discharge Plan Discharge Items Patient Disposition: Transfer [facility] Reason For Visit: CONSTIPATION Discharge Diagnosis: Constipation, weakness Condition on Discharge: Fair Activity: As commented below Lifting: Gradually increase as tolerated Bathing: No limitations Exercise/Sports: Gradually increase as tolerated Weightbearing: Right non-weightbearing Non-emergency contact: Primary Care Provider Call non-emergency contact if: you have any medication questions and your symptoms worsen Follow-up/Referrals: Tejas Roman MD [Primary Care Provider] - Diet: Regular Diet Texture: Easy to Chew Diet Comment: and supplemental tbe feeds at bedtime Addtl Attending Provider Instructions: Please continue to work on your bowel regimen especially now that you're back on opioids for pain. Pending Studies at Discharge: No Stand-Alone Forms: My [facility] Skilled Items Patient informed of condition?: Yes DNR: Yes Discharge Level of Care: Skilled Communicable Disease: No Discharge Prognosis: Improving Lines: None Urinary Catheter: No Medications and DC Order Prescriptions: New bisacodyl 10 mg Suppository 10 mg MA DAILY PRN (Reason: constipation) Qty: 12 0RF Fibersource HN 0.05 gram- 1.2 kcal/mL Liquid See Rx Instructions .ROUTE .COMPLEX Qty: 6000 0RF Rx Instructions: Please follow tube feed instructions docusate sodium 100 mg Capsule 100 mg PO BID Qty: 60 0RF polyethylene glycol 3350 [Miralax] 17 gram Powder In Packet 17 g PO DAILY PRN (Reason: constipation) Qty: 30 0RF vitamin B complex [Vitamins B Complex] Capsule 1 tab PO DAILY Qty: 30 0RF Tube Feeding Water Flush 200 ml G-tube Q6H Qty: 1000 0RF Continued multivitamin Tablet 1 tab PO DAILY metoprolol tartrate 25 mg tablet 12.5 mg PO QAM calcium citrate-vitamin D3 [Calcium Citrate + D] 315 mg-5 mcg (200 unit) Tablet 1 tab PO DAILY acetaminophen [Tylenol] 325 mg Capsule 650 mg PO QID PRN (Reason: Pain) Rx Instructions: Patient is to 1st take aleve but when it loses it's relief she is to follw up with the tylenol. amitriptyline 50 mg tablet 50 mg PO HS pantoprazole 40 mg tablet,delayed release (DR/EC) 40 mg PO BID gabapentin 100 mg capsule 200 mg PO TID albuterol sulfate 90 mcg/actuation HFA aerosol inhaler 2 puff INHALATION QID PRN (Reason: Shortness Of Breath Or Wheezing) ondansetron 4 mg tablet,disintegrating 4 mg PO UD PRN (Reason: Nausea) duloxetine 30 mg capsule,delayed release(DR/EC) 30 mg PO DAILY melatonin 5 mg Tablet 5 mg PO HS oxycodone 5 mg tablet 5 mg PO Q6H PRN (Reason: breakthrough pain) Qty: 20 0RF oxycodone [OxyContin] 10 mg Tablet,Oral Only,Ext.Rel.12 Hr 10 mg PO BID Qty: 60 0RF Discharge Orders: Discharge Order (Routine); Ordered 05/11/22 Ordered By: Desi Baron Admission Data Admit Date/Time: 05/01/22 02:07 Attending Provider: Desi Baron Admit Provider: Adwoa Rajput Primary Care Provider: Tejas Roman Other Providers: Adwoa Rajput ; [facility] ; Addi Carrera at [place] ; Bucky Starkey Coding Level of Care Code D/C DAY MANAGEMENT >30 MINS Diagnoses Constipation K59.00 Intraparenchymal hematoma of brain S06.33AA Chronic pain G89.29 Status post insertion of percutaneous endoscopic gastrostomy (PEG) tube Z93.1 Glioblastoma multiforme C71.9 Asymptomatic bacteriuria R82.71 HTN (hypertension), benign I10
== END 2022-05-11 16:47 ==
LOC: ED 23:07 → INTOOBSV 05-01 02:07 → SUATTDRO 05-01 02:07 → 3E 05-01 02:07
DX: Z88.0 Allergy status to penicillin; G83.9 Paralytic syndrome, unspecified; E86.0 Dehydration; G89.29 Other chronic pain; K59.00 Constipation, unspecified; Z88.1 Allergy status to other antibiotic agents; R62.7 Adult failure to thrive; Z66 Do not resuscitate; C71.9 Malignant neoplasm of brain, unspecified; I69.120 Aphasia following nontraumatic intracerebral hemorrhage; Z93.1 Gastrostomy status; Z79.899 Other long term (current) drug therapy; I61.8 Other nontraumatic intracerebral hemorrhage